=== PATIENT | male | born 1975 | race American Indian/Alaskan Native ===

== ENCOUNTER 2016-09-22 22:54 | Emergency (ER) | payer MEDICARE | END 2016-09-23 01:07 | disposition left against medical advice (07) | LOC: ED 22:54 | DX: M25.551 Pain in right hip (principal); Z88.5 Allergy status to narcotic agent; Z53.21 Procedure and treatment not carried out due to patient leaving prior to being seen by health care provider ==

== ENCOUNTER 2017-09-02 07:41 | Emergency (ER) | payer MEDICARE ==
[2017-09-02 09:00] LABS: HCG Qualitative,Urine Negative (Negative)
[2017-09-02 09:01] LABS: Bacteria,Urine 4+ /HPF (Negative); Bilirubin,Urine NEG (Negative); Blood,Urine LG (Negative); Color,Urine Yellow (Yellow); Protein,Urine <15 mg/dL mg/dL (Negative); Urobilinogen,Urine < 2.0 mg/dL (<2.0)
[2017-09-02 09:02] LABS: RBC,Urine > 182.0 /HPF (0.0-6.0)
--- NOTE | 2017-09-02 11:00 | Emergency Department Report ---
ED Back Pain/Injury HPI - General Chief Complaint: Back Pain/Injury Stated Complaint: BACK PAIN Time Seen by Provider: 09/02/17 10:00 Source: patient, family Limitations: No Limitations - History of Present Illness Initial Comments: Patient reports that she has back pain for week with history of back injury and back surgery 15 years ago. She said pain is located in her lower back and its 10 out of 10. Denies any recent injury. Denies any nausea or vomiting. Denies any fever or chills. Pain is dull , 10 out of 10. Worse with walking and better with rest. Denies any loss of bowel or bladder control. Over-the- counter Tylenol not helping. Denies any numbness numbness or tingling to extremities. Denies any urinary burning frequency or urgency. Denies any abdominal pain. Denies any vaginal bleeding or discharge MD Complaint: back pain Onset/Timin -: week(s) Similar Symptoms Previously: Yes Place: home Radiation: none Severity: severe Severity scale (0 -10): 10 Quality: dull Consistency: constant Improves With: immobilization Worsens With: walking Context: unknown, other (patient has chronic back pain but doesn't know if this is what is causing it. Because she said this is worse than her usual pain.) Associated Symptoms: denies: confusion, weakness, chest pain, numbness, difficulty walking, cough, difficulty urinating, diaphoresis, incontinence, fever/chills, constipation, headaches, abdominal pain, loss of appetite, malaise , nausea/vomiting, rash, seizure, shortness of breath, syncope Treatments Prior to Arrival: acetaminophen - Related Data Previous Rx's Medication Instructions Recorded Last Taken Type Metaxalone [Skelaxin] 800 mg PO TID #15 tablet 11/21/15 Unknown Rx Cyclobenzaprine [Flexeril] 10 mg PO TID PRN #12 tablet 09/02/17 Unknown Rx Fluconazole [Diflucan TAB] 150 mg PO QDAY 3 Days #3 tablet 09/02/17 Unknown Rx Ibuprofen [Motrin 600 MG tab] 600 mg PO Q8H PRN #15 tablet 09/02/17 Unknown Rx Levofloxacin [Levaquin] 750 mg PO QDAY 10 Days #10 tablet 09/02/17 Unknown Rx Allergies Allergy/AdvReac Type Severity Reaction Status Date / Time morphine Allergy Angioedema Verified 11/20/15 21:17 ED Review of Systems ROS: Stated complaint: BACK PAIN Other details as noted in HPI Comment: All other systems reviewed and negative Constitutional: no symptoms reported Respiratory: no symptoms reported Cardiovascular: denies: chest pain, palpitations, dyspnea on exertion, edema, syncope, paroxysmal nocturnal dyspnea Gastrointestinal: denies: abdominal pain, nausea, vomiting, diarrhea, constipation, hematemesis, melena, hematochezia Genitourinary: denies: urgency, frequency, hematuria Skin: denies: rash Neurological: denies: headache, weakness, numbness, paresthesias, confusion, abnormal gait, vertigo ED Past Medical Hx - Past Medical History herniated disc. Chronic back pain Surgical history: other (back surgery and spinal implant) Psychiatric history: no pertinent history GENERAL LABOR history: no GENERAL LABOR history LMP comments: current Family history: no significant family history - Social History Smoking Status: Never Smoker Alcohol use: rarely Drug use: none ED Back Pain Physical Exam - Exam General: Vital signs noted. No distress. Alert and acting appropriately. This is a 42-year-old female well-nourished well-developed in no acute distress Lungs: Fair to auscultate bilaterally no rhonchi wheezes or rales CV: S1, S2. Regular rate rhythm negative murmur Extremity: No clubbing, cyanosis or edema +2 pulses to all extremities and no neurovascular compromise Skin: Clean, dry and intact. No rash or lesions. Neurological: GCS at 15, Pt is alert and oriented 3 speech is clear . 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 Normal gait. Negative Romberg and no pronator drift. Normal Reflexes. No motor or sensory deficit Psych: Normal mood and behavior Back/Abdomen: No Abdominal Tenderness (nontender to palpate in all quadrants), No Perithoracic Tenderness, No Perilumbar Tenderness, No Sacroiliac Tenderness, No Flank Tenderness, No Straight Leg Raise Pain Neuro: Yes Normal Sensation, Yes Normal DTR's, Yes Normal Gait, No Motor Weakness ED Course Vital Signs 09/02/17 08:20 Temperature 98.6 F Pulse Rate 91 H Respiratory 16 Rate Blood Pressure 133/72 O2 Sat by Pulse 100 Oximetry - Reevaluation(s) Reevaluation #1: 09/02/17 11:31 Patient given her Rocephin 1 g IM in emergency room cover UTI and Percocet 5/ 325 mg 2 tablets Ed Back Pain Tests - Tests Tests: Abnormal UA (patient with urinary tract infection. Include bacterial and yeast large amount of blood in urine due to current menses) ED Medical Decision Making - Lab Data Lab Results 09/02/17 Range/Units 08:42 Urine Color Yellow (Yellow) Urine Turbidity Clear (Clear) Urine pH 5.0 (5.0-7.0) Ur Specific [place] 1.011 (1.003-1.030) Urine Protein <15 mg/dl (Negative) mg/dL Urine Glucose (UA) Neg (Negative) mg/dL Urine Ketones Neg (Negative) mg/dL Urine Blood Lg (Negative) Urine Nitrite Neg (Negative) Ur Reducing Substances Not Reportable Urine Bilirubin Neg (Negative) Urine Ictotest Not Reportable Urine Urobilinogen < 2.0 (<2.0) mg/dL Ur Leukocyte Esterase Mod (Negative) Urine WBC (Auto) 123.0 H (0.0-6.0) /HPF Urine RBC (Auto) > 182.0 (0.0-6.0) /HPF U Epithel Cells (Auto) 3.0 (0-13.0) /HPF Urine Bacteria (Auto) 4+ (Negative) /HPF Urine Yeast (Budding) 1+ /HPF Urine HCG, Qual Negative (Negative) Urine culture pending Large amount of blood and urine due to current menses - Medical Decision Making ED course: Patient here report lower back pain this different from her usual chronic lower back pain. Urinalysis shows significant urinary tract infection and also yeast UTI. test is negative. Patient does not have any flank pain or urinary symptoms. I discussed results with her and the diagnosis and treatment plan she was understanding. Patient does have a primary care physician so told her to follow up with her primary care physician in 2 days. Patient was given Rocephin 1 g IM in emergency room and Percocet 5/325 mg 2 tablets by mouth for back pain and to cover urinary tract infection. Patient discharged home a prescription for Levaquin,diflucan Flexeril and Motrin. Critical care attestation.: If time is entered above; I have spent that time in minutes in the direct care of this critically ill patient, excluding procedure time. ED Disposition Clinical Impression: Yeast UTI, Acute cystitis with hematuria Lower back pain Qualifiers: Chronicity: unspecified Back pain laterality: bilateral Sciatica presence: without sciatica Qualified Code(s): M54.5 - Low back pain Disposition: DC-01 TO HOME OR SELFCARE Is pt being admited?: No Does the pt Need Aspirin: No Condition: Stable Instructions: Urinary Tract Infection in Women (ED), Back Pain (ED) Additional Instructions: Please follow up via primary care physician in 2 days Increasing fluid intake to 2-3 L of water daily Please do not drive or operate heavy machinery while taking Flexeril as this medication causes drowsiness Take Levaquin and Diflucan on because you have bacterial urinary tract infection and also yeast urinary tract infection Take Motrin distal help with pain. Prescriptions: Cyclobenzaprine [Flexeril] 10 mg PO TID PRN #12 tablet PRN Reason: Muscle Spasm Fluconazole [Diflucan TAB] 150 mg PO QDAY 3 Days #3 tablet Ibuprofen [Motrin 600 MG tab] 600 mg PO Q8H PRN #15 tablet PRN Reason: Pain Levofloxacin [Levaquin] 750 mg PO QDAY 10 Days #10 tablet Referrals: PRIMARY CARE [Primary Care Provider] - 09/04/17 Forms: Work/School Release Form(ED)
[2017-09-02] MEDS ORDERED: ROCEPHIN IM ONE (11:02)
[2017-09-02] MEDS ORDERED: XYLOCAINE 1% MPF 5 mL INFILTRATI ONE (11:02)
[2017-09-02] MEDS ORDERED: NORCO 5/325 PO ONE (11:02)
[2017-09-02 11:58] VITALS: BP 113/71
== END 2017-09-02 11:58 | disposition home or self-care (01) ==
LOC: EDSEX → ED 07:41
DX: N30.01 Acute cystitis with hematuria (principal); Z88.6 Allergy status to analgesic agent
CPT/HCPCS: 81001; 81025; 87076; 87086; 87186; 96372; 99283; J0696